=== PATIENT | female | born 1980 | race Caucasian/White ===

== ENCOUNTER 2016-07-01 19:46 | Emergency (ER) | payer OTHER ==
[~2016-07-01] VITALS: Ht 167.6 cm; Wt 97.7 kg
[~2016-07-01 19:46] MED LIST: ACYCLOVIR400 MG PO; AMBIEN10 M1 PO; ASACOL HD800 MG PO; ATENOLOL50 MG; BACTRIM,SEPT1 TABLET PO; BENTYL10 MG PO; BENTYL20 MG PO; BUTALB-CAFF-AC1 EACH; CATAPRES0.1 MG PO; CELEXA20 MG PO; COLACE100 MG PO; COMBIVENT RESPIM4 GM IH; DILAUDID2 MG PO; ENDOCET 5-3251 EACH; FIORICET 50-301 EACH PO; FIORICET,ESG1 TABLET PO; FLORASTOR250 MG PO; HYOSCYAMINE0.125 MG PO; IBUPROFEN800 MG PO; KADIAN10 MG PO; KEPPRA500 MG PO; KLONOPIN0.5 M1 PO; LEXAPRO20 MG PO; LOMOTIL TABLET1 EACH PO; LYRICA150 MG PO; LYRICA25 MG PO; METHADONE10 MG PO; METHADONE5 MG PO; OPANA ER20 MG PO; OXYCODONE HCL15 MG PO; OXYCODONE15 MG PO; OXYMORPHONE HCL20 MG; PERCOCET 10-321 EACH PO; PERCOCET 5-3251 EACH PO; PERCOCET 5/31 TABLET PO; PHENERGAN25 MG PR; PREDNISONE10 MG; PREDNISONE50 MG PO; PREMARIN0.3 MG PO; PREMARIN0.625 MG PO; PREMARIN1.25 MG PO; PRILOSEC20 MG PO; PROMETHAZINE HC25 M1; PROMETHAZINE HC25 M1 PO; ROBITUSSIN DM118 ML PO; SEROQUEL100 MG PO; SEROQUEL12.5 MG PO; SOMA350 M1 PO; SOMA350 MG PO; TENORMIN50 MG PO; TOPAMAX100 MG PO; TOPAMAX50 MG PO; TRAZODONE HCL100 MG PO; XANAX0.5 MG PO; ZOFRAN4 MG PO; ZYVOX600 MG PO; [UNRECOGNIZED DRUG - MIXTURE] PO
[2016-07-01] MEDS ORDERED: INDOCIN50 MG PO (21:53)
[2016-07-01] MEDS ORDERED: ULTRACET1 TABLET PO (21:53)
[2016-07-01 22:10] VITALS: BP 134/89
== END 2016-07-01 22:10 | disposition home or self-care (01) ==
LOC: EME 19:46
DX: S93.402A Sprain of unspecified ligament of left ankle, initial encounter (principal); X50.9XXA Other and unspecified overexertion or strenuous movements or postures, initial encounter; Y93.89 Activity, other specified
CPT/HCPCS: 73610; 99281; 99284; J3010

== ENCOUNTER 2016-07-21 00:02 | Emergency (ER) | payer OTHER ==
[~2016-07-21] VITALS: Ht 167.6 cm; Wt 102.1 kg
[~2016-07-21 00:02] MED LIST changes: +INDOCIN50 MG PO; +ULTRACET1 TABLET PO
[2016-07-21] MEDS ORDERED: INDOCIN25 MG PO (00:29)
[2016-07-21] MEDS ORDERED: VIBRAMYCIN100 MG PO (00:29)
[2016-07-21 00:45] VITALS: BP 134/79
== END 2016-07-21 00:46 | disposition home or self-care (01) ==
LOC: EME 00:02
DX: N76.4 Abscess of vulva (principal)
CPT/HCPCS: 99281; 99284

== ENCOUNTER 2017-08-05 22:19 | Emergency (ER) | payer OTHER ==
[~2017-08-05] VITALS: Ht 167.6 cm; Wt 104.1 kg
[~2017-08-05 22:19] MED LIST changes: +INDOCIN25 MG PO; +VIBRAMYCIN100 MG PO
[2017-08-06 01:13] VITALS: BP 148/103
== END 2017-08-06 01:13 | disposition home or self-care (01) ==
LOC: EME 22:19
PROC: 2W3DX1Z Immobilization of Left Lower Arm using Splint (ICD-10-PCS; principal; 2017-08-05)
DX: S52.502A Unspecified fracture of the lower end of left radius, initial encounter for closed fracture (principal); S40.012A Contusion of left shoulder, initial encounter; S50.02XA Contusion of left elbow, initial encounter; W10.9XXA Fall (on) (from) unspecified stairs and steps, initial encounter; Y93.01 Activity, walking, marching and hiking; R91.8 Other nonspecific abnormal finding of lung field; Z79.891 Long term (current) use of opiate analgesic; Z88.1 Allergy status to other antibiotic agents; Z88.0 Allergy status to penicillin; Z88.8 Allergy status to other drugs, medicaments and biological substances
CPT/HCPCS: 73030; 73070; 73080; 73100; 73110; 99281; 99283; J1885; J3010

== ENCOUNTER 2017-08-29 03:40 | Emergency (ER) | payer OTHER ==
[~2017-08-29] VITALS: Ht 167.6 cm; Wt 99.1 kg
[2017-08-29] MEDS ORDERED: ULTRACET1 TABLET PO (04:43)
[2017-08-29] MEDS ORDERED: MOTRIN800 MG PO (04:43)
[2017-08-29 05:01] VITALS: BP 99/72
[2017-08-29] MEDS ORDERED: NORCO 7.5/321 TABLET PO (05:13)
== END 2017-08-29 05:18 | disposition home or self-care (01) ==
LOC: EME 03:40
DX: S93.402A Sprain of unspecified ligament of left ankle, initial encounter (principal); S93.602A Unspecified sprain of left foot, initial encounter; W17.2XXA Fall into hole, initial encounter; Y93.01 Activity, walking, marching and hiking; Y92.828 Other wilderness area as the place of occurrence of the external cause; Z88.0 Allergy status to penicillin; Z88.8 Allergy status to other drugs, medicaments and biological substances
CPT/HCPCS: 73610; 73630; 99281; 99285